=== PATIENT | female | born 1935 | race Caucasian/White ===

== ENCOUNTER 2019-06-17 10:58 | Outpatient (RCR) | payer MEDICARE, SELFPAY ==
--- NOTE | 2019-06-17 11:48 | PTOPEVAL ---
Thank you for referring this patient to [facility]. Please review, sign, date and return this plan of care WAYNE. I agree with and certify that the following plan of care is medically necessary. Referring Physician Date Admitting Provider: Attending Provider: PHYSICIAN NOT ON STAFF Referring Provider: *PT Outpatient Evaluation Start: 06/17/19 11:11 Freq: Status: Active Protocol: Document 06/17/19 11:13 LUIGI (Rec: 06/17/19 11:48 [email or web address] [email or web address]) Therapy Assessment Status Assessment Status Assessment Status Evaluation Evaluation Information Problem Diagnosis right shoulder pain Onset 06/03/19 Subjective Information Pt. reports that she fell on Query Text:As Reported By Patient/ 06/03/19 while carrying her Family laundry. She reports having caught her toe on the step and fell forward onto her outstretched arms. She reports day after she developed right shoulder pain. Pt. reports her goal is to decrease her shoulder pain and to improve her walking. Prior Level of Function Activity Level (Last 3 Months) Hand Dominance Right Activity of Daily Living Ability Independent Indoor/Home Mobility Independent Community Mobility Independent Stairs Ability Independent Functional Cognition (Planning, Shopping Independent , Taking Medications) Cooking Yes Cleaning Yes Laundry Yes Shopping Yes Driving Yes Home Setting Living Situation With Adult Child Mobility Assistive Devices (Used Last 3 Cane, Small Based Quad Months) Bathing Equipment None Grooming Activities of Daily Living None Devices Dressing Activities of Daily Living None Devices Eating Activities of Daily Living None Devices Pain Assessment Timing of Pain Assessment Timing of Pain Assessment Pre-Treatment Pain Scale Pain Scale Used Numeric (1 - 10) Self Report Pain Assessment Right Shoulder(s) Reported Pain Level 9 Pain Description Aching Pain Frequency Acute,Continuous Current Pain Intensity 9 Lowest Pain Intensity 5 Greatest Pain Intensity 10 Pain Level Goal 0 Pain Aggravating Factors Lifting Other Pain
--- NOTE | 2019-08-26 08:47 | PCPTNOTE ---
08/26/19 - patient has not been to therapy in several weeks or months. patient has been called and no return calls have been made to finish out the POC. as of this date, patient will be DC'd from skilled PT and all progress towards goals will be taken from the most recent evaluation/note. JOSE R
== END 2019-06-18 15:46 | disposition home or self-care (01) ==
LOC: CHSPT 10:58
DX: M75.41 Impingement syndrome of right shoulder (principal)
CPT/HCPCS: 97014; 97110; 97162; G0283

== ENCOUNTER → 2019-06-30 06:22 | Outpatient (NON) | payer MEDICARE, SELFPAY ==
[2019-06-30 06:35] LABS: Basophils Absolute Auto 0.04 K/mm3 (0.00-0.10); Basophils Percent Auto 0.2 % (0.0-1.0); Eosinophils Absolute Auto 0.24 K/mm3 (0.02-0.50); Eosinophils Percent Auto 1.4 % (1.0-6.0); Hematocrit 37.7 % (35.0-42.0); Immature Granulocyte Absolute 0.09 K/mm3 (0.00-0.00); Immature Granulocyte Percent A 0.5 % (0.0-0.0); Lymphocytes Absolute Auto 3.01 K/mm3 (1.10-4.50); Lymphocytes Percent Auto 17.2 % (18.0-42.0); Mean Corpuscular HGB Conc 31.8 g/dL (32.0-36.0); Mean Corpuscular Hemoglobin 29.9 pg (27.0-31.0); Mean Platelet Volume 11.5 fl (9.2-11.8); Monocytes Percent Auto 6.3 % (2.0-11.0); Neutrophils Percent Auto 74.4 % (50.0-70.0); Platelet Count Result 236 K/mm3 (150-420); Red Blood Count 4.01 M/mm3 (4.20-5.40); Red Cell Distribution Width 14.6 % (11.6-14.4); White Blood Count 17.5 K/mm3 (4.8-10.8)
[2019-06-30 06:50] LABS: Alanine Aminotransferase 32 U/L (14-59); Albumin Level 2.8 g/dL (3.4-5.0); Alkaline Phosphatase 95 U/L (46-116); Anion Gap 12.2 mmol/L (7-16); Aspartate Amino Transferase 17 U/L (15-37); Bilirubin,Total 0.5 mg/dL (0.00-1.00); Blood Urea Nitrogen 32 mg/dL (7-18); Calcium 8.5 mg/dL (8.5-10.1); Carbon Dioxide 26 mmol/L (21-32); Chloride 106 mmol/L (98-108); Cholesterol 137 mg/dL (0-200); Estimated Glomerular Filt Rate 44; Glucose 171 mg/dL (70-99); HDL Direct 32 mg/dL (40-60); LDL Cholesterol Calculated 86 mg/dL (<130); Osmolality Calculated 300 mOsm/kg (285-295); Potassium 4.2 mmol/L (3.5-5.1); Sodium 140 mmol/L (136-145); Triglycerides 97 mg/dL (0-150)
== END ==
PROVIDERS: Visit Provider Family Medicine
DX: M54.10 Radiculopathy, site unspecified (principal); M79.604 Pain in right leg; M79.605 Pain in left leg; E78.5 Hyperlipidemia, unspecified
CPT/HCPCS: 99199; 36415; 80053; 80061; 85025

== ENCOUNTER → 2019-10-07 06:33 | Outpatient (NON) | payer MEDICARE, SELFPAY ==
[2019-10-07 07:03] LABS: Basophils Absolute Auto 0.06 K/mm3 (0.00-0.10); Basophils Percent Auto 0.4 % (0.0-1.0); Eosinophils Absolute Auto 0.61 K/mm3 (0.02-0.50); Hematocrit 35.8 % (35.0-42.0); Hemoglobin 11.3 g/dL (11.7-13.8); Immature Granulocyte Absolute 0.16 K/mm3 (0.00-0.00); Lymphocytes Absolute Auto 3.45 K/mm3 (1.10-4.50); Lymphocytes Percent Auto 22.6 % (18.0-42.0); Mean Corpuscular HGB Conc 31.6 g/dL (32.0-36.0); Mean Corpuscular Hemoglobin 29.7 pg (27.0-31.0); Mean Platelet Volume 10.6 fl (9.2-11.8); Monocytes Absolute Auto 0.94 K/mm3 (0.10-0.90); Monocytes Percent Auto 6.2 % (2.0-11.0); Neutrophils Percent Auto 65.8 % (50.0-70.0); Platelet Count Result 414 K/mm3 (150-420); Red Blood Count 3.81 M/mm3 (4.20-5.40); Red Cell Distribution Width 15.7 % (11.6-14.4); White Blood Count 15.3 K/mm3 (4.8-10.8)
[2019-10-07 07:41] LABS: Thyroid Stimulating Hormone 2.63 uIU/mL (0.36-3.74); Vitamin B12 800 pg/mL (193-986)
== END ==
PROVIDERS: PCP Family Medicine; Visit Provider Family Medicine
DX: D64.9 Anemia, unspecified (principal); R60.9 Edema, unspecified; E78.5 Hyperlipidemia, unspecified; I10 Essential (primary) hypertension
CPT/HCPCS: 36415; 82607; 84443; 85025

== ENCOUNTER 2019-10-07 14:08 | Outpatient (CLI) | payer MEDICARE, SELFPAY ==
--- NOTE | ~2019-10-07 | XR_ITS ---
XR chest 2V DATE: 10/07/2019 14:50 INDICATION: Elevated white blood cell count TECHNIQUE: AP and lateral views COMPARISON: 07/01/2019 AP and lateral chest FINDINGS: Heart size is within normal range. There is aortic calcification and mild unfolding. There are calcified right hilar nodes consistent with old granulomatous disease. No hilar or mediastinal en largement. No pulmonary infiltrate or consolidation, pleural effusion or pulmonary vascular congestion or pneumo thorax. Diffuse osteopenia. There is mild anterior wedging and loss of height at L1 consistent with compressi on fracture, apparently unchanged since 07/01/2019. IMPRESSION: No active cardiopulmonary disease Aortic atherosclerosis Reviewed, dictated and finalized at location B.
[2019-10-07 21:12] LABS: Appearance Urine Cloudy (Clear); Bilirubin Urine Negative (Negative); Color Urine Yellow (Yellow); Glucose Urine UA Negative (Negative); Ketones Urine Negative (Negative); Leukocyte Esterase Ur 3+ (Negative); Nitrate Urine Negative (Negative); Protein Urine Negative (Negative); Specific Grav Ur 1.025 (1.010-1.020); Urobilinogen Urine 0.2 mg/dL (0.2-1.0)
[2019-10-07 21:20] LABS: Add Urine Microscopic? YES; Bacteria Urine 3+ /hpf; Blood Urine Trace (Negative); Squamous Epithelial Cell Urine Rare /hpf (Few); WBC Urine >75 /hpf (0-3)
== END 2019-10-07 14:09 | disposition home or self-care (01) ==
PROVIDERS: PCP Family Medicine; Visit Provider Family Medicine
DX: N39.0 Urinary tract infection, site not specified (principal); R41.82 Altered mental status, unspecified; D72.829 Elevated white blood cell count, unspecified
CPT/HCPCS: 36415; 71046; 81001; 82607; 84443; 85025; 87086; 87088

== ENCOUNTER 2020-05-18 06:17 | Outpatient (NON) | payer MEDICARE, SELFPAY ==
[2020-05-18 06:37] LABS: Hematocrit 31.7 % (35.0-42.0); Hemoglobin 9.9 g/dL (11.7-13.8); Immature Reticulocyte Fraction 17.9 % (2.0-16.52); Mean Corpuscular HGB Conc 31.2 g/dL (32.0-36.0); Mean Corpuscular Hemoglobin 28.9 pg (27.0-31.0); Mean Corpuscular Volume 92.7 fL (78.0-102.0); Mean Platelet Volume 11.3 fl (9.2-11.8); Platelet Count Result 406 K/mm3 (150-420); Red Blood Count 3.42 M/mm3 (4.20-5.40); Red Cell Distribution Width 15.9 % (11.6-14.4); Reticulocyte Hemoglobin Conten 32.8 pg (28.0-35.0); Reticulocyte Percent 1.31 % (0.50-1.50); Reticulocytes Absolute 0.04 M/mm3 (0.02-0.1); White Blood Count 16.3 K/mm3 (4.8-10.8)
[2020-05-18 07:21] LABS: Ferritin 628 ng/mL (8-252); Iron 18 ug/dL (50-170); Percent Iron Saturation 25 % (12-57)
[2020-05-18 07:25] LABS: Band Neutrophils Percent 0 % (0-6); Basophils Percent Manual 0 % (0-1); Eosinophils Absolute Manual 0.65 K/mm3 (0.02-0.5); Eosinophils Percent Manual 4 % (1-6); Lymphocytes Absolute Manual 3.91 K/mm3 (1.1-4.5); Lymphocytes Percent Manual 24 % (18-44); Metamyelocytes Percent 1 %; Monocytes Absolute Manual 1.79 K/mm3 (0.1-0.90); Monocytes Percent Manual 11 % (3-9); Myelocytes Percent 1 %; Neutrophils Absolute Manual 9.61 K/mm3 (1.7-7.2); Neutrophils Percent Manual 59 % (46-73); Nucleated Red Blood Cells 1 %; Total Cells Counted 100
== END 2020-05-18 06:18 ==
PROVIDERS: PCP Family Medicine; Visit Provider Internal Medicine Hematology & Oncology
DX: D64.9 Anemia, unspecified (principal); R60.9 Edema, unspecified; E78.5 Hyperlipidemia, unspecified; I10 Essential (primary) hypertension; D72.829 Elevated white blood cell count, unspecified; D72.9 Disorder of white blood cells, unspecified
CPT/HCPCS: 36415; 81206; 81207; 82728; 83540; 83550; 85025; 85046

== ENCOUNTER 2020-07-10 07:02 | Outpatient (NON) | payer MEDICARE, SELFPAY ==
[2020-07-10 07:56] LABS: Basophils Absolute Auto 0.05 K/mm3 (0.00-0.10); Basophils Percent Auto 0.3 % (0.0-1.0); Eosinophils Absolute Auto 0.27 K/mm3 (0.02-0.50); Eosinophils Percent Auto 1.8 % (1.0-6.0); Hematocrit 29.9 % (35.0-42.0); Hemoglobin 9.2 g/dL (11.7-13.8); Immature Granulocyte Absolute 0.11 K/mm3 (0.00-0.00); Immature Granulocyte Percent A 0.7 % (0.0-0.0); Lymphocytes Absolute Auto 2.08 K/mm3 (1.10-4.50); Lymphocytes Percent Auto 14.1 % (18.0-42.0); Mean Corpuscular HGB Conc 30.8 g/dL (32.0-36.0); Mean Corpuscular Hemoglobin 28.9 pg (27.0-31.0); Mean Platelet Volume 11.1 fl (9.2-11.8); Monocytes Absolute Auto 0.64 K/mm3 (0.10-0.90); Monocytes Percent Auto 4.3 % (2.0-11.0); Neutrophils Absolute Auto 11.6 K/mm3 (1.7-7.2); Neutrophils Percent Auto 78.8 % (50.0-70.0); Platelet Count Result 414 K/mm3 (150-420); Red Blood Count 3.18 M/mm3 (4.20-5.40); Red Cell Distribution Width 15.9 % (11.6-14.4); White Blood Count 14.8 K/mm3 (4.8-10.8)
[2020-07-10 08:13] LABS: Alanine Aminotransferase 12 U/L (14-59); Albumin Level 2.3 g/dL (3.4-5.0); Alkaline Phosphatase 120 U/L (46-116); Anion Gap 10 mmol/L (8-16); Aspartate Amino Transferase 14 U/L (15-37); Bilirubin,Total 0.2 mg/dL (0.00-1.00); Blood Urea Nitrogen 58 mg/dL (7-18); Calcium 8.5 mg/dL (8.5-10.1); Carbon Dioxide 21 mmol/L (21-32); Chloride 102 mmol/L (98-108); Cholesterol 114 mg/dL (0-200); Estimated Glomerular Filt Rate 28; Glucose 119 mg/dL (70-99); HDL Direct 19 mg/dL (40-60); LDL Cholesterol Calculated 64 mg/dL (<130); Osmolality Calculated 293 mOsm/kg (285-295); Potassium 4.4 mmol/L (3.5-5.1); Sodium 133 mmol/L (136-145); Total Protein 6.1 g/dL (6.4-8.2); Triglycerides 156 mg/dL (0-150)
== END 2020-07-10 07:03 ==
LOC: CHSLAB 07:04
PROVIDERS: PCP Family Medicine; Visit Provider Family Medicine
DX: M51.27 Other intervertebral disc displacement, lumbosacral region (principal); J45.909 Unspecified asthma, uncomplicated; S32.010D Wedge compression fracture of first lumbar vertebra, subsequent encounter for fracture with routine healing; I50.9 Heart failure, unspecified; D64.9 Anemia, unspecified; E11.9 Type 2 diabetes mellitus without complications; E78.5 Hyperlipidemia, unspecified
CPT/HCPCS: 36415; 80053; 80061; 85025

== ENCOUNTER 2020-07-20 06:13 | Outpatient (NON) | payer MEDICARE, SELFPAY ==
[2020-07-20 06:26] LABS: Basophils Absolute Auto 0.05 K/mm3 (0.00-0.10); Basophils Percent Auto 0.3 % (0.0-1.0); Eosinophils Absolute Auto 0.74 K/mm3 (0.02-0.50); Eosinophils Percent Auto 5.1 % (1.0-6.0); Hematocrit 29.6 % (35.0-42.0); Hemoglobin 8.9 g/dL (11.7-13.8); Immature Granulocyte Absolute 0.12 K/mm3 (0.00-0.00); Immature Granulocyte Percent A 0.8 % (0.0-0.0); Lymphocytes Absolute Auto 3.14 K/mm3 (1.10-4.50); Lymphocytes Percent Auto 21.7 % (18.0-42.0); Mean Corpuscular HGB Conc 30.1 g/dL (32.0-36.0); Mean Corpuscular Hemoglobin 28.3 pg (27.0-31.0); Mean Platelet Volume 10.7 fl (9.2-11.8); Monocytes Absolute Auto 1.14 K/mm3 (0.10-0.90); Monocytes Percent Auto 7.9 % (2.0-11.0); Neutrophils Absolute Auto 9.3 K/mm3 (1.7-7.2); Neutrophils Percent Auto 64.2 % (50.0-70.0); Platelet Count Result 411 K/mm3 (150-420); Red Blood Count 3.15 M/mm3 (4.20-5.40); Red Cell Distribution Width 16.8 % (11.6-14.4); White Blood Count 14.5 K/mm3 (4.8-10.8)
[2020-07-20 06:56] LABS: Hemoglobin A1C 6.2 % (<5.7)
[2020-07-20 07:28] LABS: Alanine Aminotransferase 16 U/L (14-59); Albumin Level 2.4 g/dL (3.4-5.0); Alkaline Phosphatase 110 U/L (46-116); Anion Gap 11 mmol/L (8-16); Aspartate Amino Transferase 24 U/L (15-37); Bilirubin,Total 0.2 mg/dL (0.00-1.00); Blood Urea Nitrogen 60 mg/dL (7-18); Calcium 8.8 mg/dL (8.5-10.1); Carbon Dioxide 21 mmol/L (21-32); Chloride 101 mmol/L (98-108); Estimated Glomerular Filt Rate 17; Folic Acid 12.7 ng/mL (8.6->20); Glucose 112 mg/dL (70-99); Iron 33 ug/dL (50-170); Osmolality Calculated 293 mOsm/kg (285-295); Percent Iron Saturation 33 % (12-57); Potassium 3.6 mmol/L (3.5-5.1); Sodium 133 mmol/L (136-145); Total Protein 6.2 g/dL (6.4-8.2); Vitamin B12 923 pg/mL (193-986)
== END 2020-07-20 06:14 ==
PROVIDERS: Visit Provider Family Medicine
DX: D64.9 Anemia, unspecified (principal); D72.829 Elevated white blood cell count, unspecified; M51.27 Other intervertebral disc displacement, lumbosacral region; K21.9 Gastro-esophageal reflux disease without esophagitis; S32.010D Wedge compression fracture of first lumbar vertebra, subsequent encounter for fracture with routine healing; I50.9 Heart failure, unspecified; E11.9 Type 2 diabetes mellitus without complications; E78.5 Hyperlipidemia, unspecified; I10 Essential (primary) hypertension
CPT/HCPCS: 36415; 80053; 82607; 82746; 83036; 83540; 83550; 85025; 87040

== ENCOUNTER 2020-07-21 06:10 | Outpatient (NON) | payer MEDICARE, SELFPAY ==
[2020-07-21 07:56] LABS: Occult Blood Negative (Negative)
[2020-07-21 07:56] LABS: Occult Blood Negative (Negative)
[2020-07-21 07:57] LABS: Occult Blood Negative (Negative)
== END 2020-07-21 06:11 ==
LOC: CHSLAB 06:11
PROVIDERS: Visit Provider Family Medicine
DX: D64.9 Anemia, unspecified (principal)
CPT/HCPCS: 82272

== ENCOUNTER 2020-07-22 06:19 | Outpatient (NON) | payer MEDICARE, SELFPAY ==
[2020-07-22 07:00] LABS: Alanine Aminotransferase 15 U/L (14-59); Albumin Level 2.1 g/dL (3.4-5.0); Alkaline Phosphatase 105 U/L (46-116); Anion Gap 10 mmol/L (8-16); Aspartate Amino Transferase 20 U/L (15-37); Bilirubin,Total 0.2 mg/dL (0.00-1.00); Blood Urea Nitrogen 64 mg/dL (7-18); Calcium 8.9 mg/dL (8.5-10.1); Carbon Dioxide 23 mmol/L (21-32); Chloride 102 mmol/L (98-108); Estimated Glomerular Filt Rate 16; Glucose 118 mg/dL (70-99); Osmolality Calculated 299 mOsm/kg (285-295); Potassium 2.7 mmol/L (3.5-5.1); Sodium 135 mmol/L (136-145); Total Protein 5.7 g/dL (6.4-8.2)
== END 2020-07-22 06:20 ==
PROVIDERS: Visit Provider Family Medicine
DX: D64.9 Anemia, unspecified (principal); E11.9 Type 2 diabetes mellitus without complications
CPT/HCPCS: 36415; 80053